=== PATIENT | male | born 2005 | race Asian ===

== ENCOUNTER 2024-12-31 05:54 | Day surgery (SDC) | payer BC ==
[2024-12-30 14:08] VITALS: BMI 32.5
[2024-12-31] MEDS ORDERED: CEFAZOLIN 2 GM VIAL ONE (07:12)
[2024-12-31] MEDS ORDERED: fentaNYL PF 100 MCG/2 ML SYRINGE ONE (07:33)
[2024-12-31] MEDS ORDERED: PROPOFOL 20 ML ONE (07:34)
[2024-12-31] MEDS ORDERED: Ondansetron PF 4 MG/2 ML Vial ONE (07:34)
[2024-12-31] MEDS ORDERED: Ketorolac Tromethamine 30 MG (1 mL) VIAL ONE (07:34)
[2024-12-31] MEDS ORDERED: Lidocaine 1% PF 5 ML VIAL ONE (07:34)
[2024-12-31] MEDS ORDERED: Rocuronium Bromide 10 MG/ML (10ML VIAL) ONE (07:35)
[2024-12-31] MEDS ORDERED: SUGAMMADEX SODIUM 200 MG/2 ML VIAL ONE (08:55)
== END 2024-12-31 11:52 | disposition home or self-care (01) ==
LOC: SDC 05:54
PROVIDERS: ATTEND Orthopaedic Surgery
PROC: 0RSJ0ZZ Reposition Right Shoulder Joint, Open Approach (ICD-10-PCS; principal; 2024-12-31)
DX: S43.101A Unspecified dislocation of right acromioclavicular joint, initial encounter (principal); M24.9 Joint derangement, unspecified; W21.01XA Struck by football, initial encounter
CPT/HCPCS: C1713; J0166; J0665; J1100; J1885; J2250; J2405; J2704; J3010